=== PATIENT | male | born 1945 | race Caucasian/White ===

== ENCOUNTER 2017-11-21 07:28 | Emergency (ER) | payer OTHER ==
[~2017-11-21] VITALS: Ht 180.3 cm; Wt 96.2 kg
[~2017-11-21 07:28] MED LIST: ACCUPRIL40 MG PO; ADULT LOW DOSE81 MG; DIAZEPAM 5 MG5 M1 PO; INDAPAMIDE2.5 MG; NEXIUM40 MG; NEXIUM40 MG PO; NORCO 5-325 TA1 EACH PO; OMEPRAZOLE40 MG PO; ZYRTEC
[2017-11-21] MEDS ORDERED: CIPRO500 MG PO (07:41)
[2017-11-21 08:08] LABS: URINE BILIRUBIN NEGATIVE (Negative); URINE BLOOD NEGATIVE (Negative); URINE CLARITY CLEAR; URINE COLOR YELLOW; URINE GLUCOSE-RANDOM NEGATIVE (Negative); URINE KETONES NEGATIVE (Negative); URINE LEUKOCYTES-REFLEX NEGATIVE (Negative); URINE NITRITE-REFLEX NEGATIVE (Negative); URINE PROTEIN NEGATIVE (Negative); URINE SPECIFIC GRAVITY 1.015 (1.005-1.030); URINE UROBILINOGEN 0.2 E.U./dl (0.2-1.0)
[2017-11-21 08:23] LABS: CALCIUM 8.6 mg/dL (8.5-10.1); CREATININE 0.9 mg/dL (0.6-1.3); POTASSIUM 3.6 mmol/L (3.5-5.1)
[2017-11-21 09:47] VITALS: BP 179/89
[2017-11-22] MEDS ORDERED: PYRIDIUM100 M1 PO (15:43)
[2017-11-22] MEDS ORDERED: LIDOCAINE VISC100 ML TOP (15:43)
[2017-11-22] MEDS ORDERED: FLOMAX0.4 MG PO (16:05)
== END 2017-11-21 09:53 | disposition home or self-care (01) ==
LOC: M.ERS 07:28
PROVIDERS: Emergency Medicine Emergency Medical Services
DX: R33.9 Retention of urine, unspecified (principal); M19.90 Unspecified osteoarthritis, unspecified site; I10 Essential (primary) hypertension; K21.9 Gastro-esophageal reflux disease without esophagitis; Z88.0 Allergy status to penicillin; Z91.041 Radiographic dye allergy status; Z88.2 Allergy status to sulfonamides; Z88.8 Allergy status to other drugs, medicaments and biological substances; Z90.49 Acquired absence of other specified parts of digestive tract

== ENCOUNTER 2017-11-21 12:20 | Emergency (ER) | payer OTHER ==
[~2017-11-21] VITALS: Ht 180.3 cm; Wt 96.6 kg
[~2017-11-21 12:20] MED LIST changes: +CIPRO500 MG PO
[2017-11-21 14:07] VITALS: BP 166/72
[2017-11-22] MEDS ORDERED: PYRIDIUM100 M1 PO (15:43)
[2017-11-22] MEDS ORDERED: LIDOCAINE VISC100 ML TOP (15:43)
[2017-11-22] MEDS ORDERED: FLOMAX0.4 MG PO (16:05)
== END 2017-11-21 14:08 | disposition home or self-care (01) ==
LOC: M.ERS 12:20
DX: T83.098A Other mechanical complication of other urinary catheter, initial encounter (principal); I10 Essential (primary) hypertension; M19.90 Unspecified osteoarthritis, unspecified site; K21.9 Gastro-esophageal reflux disease without esophagitis; Z88.0 Allergy status to penicillin; Z88.2 Allergy status to sulfonamides; Z91.041 Radiographic dye allergy status; Z90.49 Acquired absence of other specified parts of digestive tract; Z88.8 Allergy status to other drugs, medicaments and biological substances; Y84.8 Other medical procedures as the cause of abnormal reaction of the patient, or of later complication, without mention of misadventure at the time of the procedure; Y92.89 Other specified places as the place of occurrence of the external cause

== ENCOUNTER 2017-11-22 14:45 | Emergency (ER) | payer OTHER ==
[~2017-11-22] VITALS: Ht 180.3 cm; Wt 96.6 kg
[2017-11-22] MEDS ORDERED: LIDOCAINE VISC100 ML TOP (15:43)
[2017-11-22] MEDS ORDERED: PYRIDIUM100 M1 PO (15:43)
[2017-11-22 16:00] VITALS: BP 146/75
[2017-11-22] MEDS ORDERED: FLOMAX0.4 MG PO (16:05)
== END 2017-11-22 16:12 | disposition home or self-care (01) ==
LOC: M.ERS 14:45
DX: N40.0 Benign prostatic hyperplasia without lower urinary tract symptoms (principal); R31.9 Hematuria, unspecified; I10 Essential (primary) hypertension; K21.9 Gastro-esophageal reflux disease without esophagitis; M19.90 Unspecified osteoarthritis, unspecified site; Z88.0 Allergy status to penicillin; Z88.2 Allergy status to sulfonamides; Z91.041 Radiographic dye allergy status; Z88.8 Allergy status to other drugs, medicaments and biological substances

== ENCOUNTER 2020-08-10 11:11 | Emergency (ER) | payer OTHER ==
[~2020-08-10] VITALS: Ht 180.3 cm; Wt 89.4 kg
[~2020-08-10 11:11] MED LIST changes: +FLOMAX0.4 MG PO; +LIDOCAINE VISC100 ML TOP; +PYRIDIUM100 M1 PO
[2020-08-10] MEDS ORDERED: METFORMIN HCL500 M3 PO ×2 (11:24→11:25)
[2020-08-10 12:27] VITALS: BP 185/91
== END 2020-08-10 12:28 | disposition home or self-care (01) ==
LOC: M.ERS 11:11
DX: R33.9 Retention of urine, unspecified (principal); I10 Essential (primary) hypertension; K21.9 Gastro-esophageal reflux disease without esophagitis; Z88.0 Allergy status to penicillin; Z88.2 Allergy status to sulfonamides; Z91.041 Radiographic dye allergy status; Z79.899 Other long term (current) drug therapy; Z86.73 Personal history of transient ischemic attack (TIA), and cerebral infarction without residual deficits